=== PATIENT | male | born 1985 | race Hispanic/Latino ===

== ENCOUNTER 2018-07-19 23:33 | Emergency (ER) | payer BC ==
--- NOTE | 2018-07-19 23:41 | ED PDOC ---
Arrival/HPI - General Time Seen by Provider: 07/19/18 23:38 Historian: Patient, EMS - History of Present Illness Narrative History of Present Illness (Text): 07/19/18 23:41 Jake Alexander is a 32 year old male, whose past medical history includes bipolar disorder and substance abuse, presents to the ED brought in by EMS status post drug overdose. Patient snorted an unknown drug tonight prior to arrival, possible opiate. Patient admits to recreational drug use. EMS administered 2mg of Narcan en route to the hospital with positive response. On arrival patient is alert, oriented x3. Patient denies any other complaints currently, states he feels a little anxious. Time/Duration: Prior to Arrival Symptom Course: Improving Activities at Onset: Light Context: Home Past Medical History - Provider Review Nursing Documentation Reviewed: Yes - Cardiac Hx Pacemaker: No - Hematological/Oncological Hx Blood Transfusions: No Hx Blood Transfusion Reaction: No - Musculoskeletal/Rheumatological Hx Musculoskeletal Disorders: No - Psychiatric Hx Emotional Abuse: No Hx Physical Abuse: No Hx Substance Use: Yes (STOPPED ABOUT A MONTH AGO) - Anesthesia Hx Anesthesia Reactions: No Hx Malignant Hyperthermia: No - Suicidal Assessment Feels Threatened In Home Enviroment: No Family/Social History - Physician Review Nursing Documentation Reviewed: Yes Family/Social History: Unknown Family HX Hx Alcohol Use: Yes (OCCASIONAL BEER) Hx Substance Use: Yes (STOPPED ABOUT A MONTH AGO) Allergies/Home Meds Allergies/Adverse Reactions: Allergies No Known Allergies Allergy (Verified 10/27/16 09:34) Home Medications: Home Meds Medication Instructions Recorded Confirmed Citalopram Hydrobromide [Celexa] 40 mg PO DAILY 10/27/16 10/29/16 Lamotrigine [Lamictal] 200 mg PO DAILY 10/27/16 10/29/16 Ranitidine HCl [Zantac] 150 mg PO DAILY PRN 10/27/16 10/29/16 buPROPion [Bupropion HCl] 150 mg PO DAILY 10/27/16 10/29/16 Review of Systems - Physician Review All systems were reviewed & negative as marked: Yes - Review of Systems Constitutional: Normal. absent: Fevers Eyes: Normal ENT: Normal Respiratory: Normal. absent: SOB, Cough Cardiovascular: Normal. absent: Chest Pain Gastrointestinal: Normal. absent: Abdominal Pain, Diarrhea Genitourinary Male: Normal Musculoskeletal: Normal Skin: Normal Neurological: Normal. absent: Headache, Dizziness Endocrine: Normal Hemo/Lymphatic: Normal Psychiatric: Anxiety Physical Exam Vital Signs Reviewed: Yes Temperature: Afebrile Blood Pressure: Hypertensive Pulse: Regular Respiratory Rate: Normal Appearance: Positive for: Well-Appearing, Non-Toxic, Comfortable Pain Distress: None Mental Status: Positive for: Alert and Oriented X 3 - Systems Exam Head: Present: Atraumatic, Normocephalic Pupils: Present: PERRL Extroacular Muscles: Present: EOMI Conjunctiva: Present: Normal Mouth: Present: Moist Mucous Membranes Neck: Present: Normal Range of Motion Respiratory/Chest: Present: Clear to Auscultation, Good Air Exchange. No: Respiratory Distress, Accessory Muscle Use Cardiovascular: Present: Regular Rate and Rhythm, Normal S1, S2. No: Murmurs Abdomen: No: Tenderness, Distention, Peritoneal Signs Back: Present: Normal Inspection Upper Extremity: Present: Normal Inspection. No: Cyanosis, Edema Lower Extremity: Present: Normal Inspection. No: Edema Neurological: Present: GCS=15, CN II-XII Intact, Speech Normal Skin: Present: Warm, Dry, Normal Color. No: Rashes Psychiatric: Present: Alert, Oriented x 3, Normal Insight, Normal Concentration Medical Decision Making ED Course and Treatment: 07/19/18 23:41 Impression: 32 year old male who presents to the ED by EMS s/p overdose. Plan: -- EKG -- Labs -- Chest X-ray -- Urine drug screen -- Reassess and Disposition Progress Notes: Reviewed EKG, NSR at 96 bpm. Non-specific T wave changes. 07/20/18 00:55 Chest X-ray reviewed, shows no acute processes. 07/20/18 01:39 Pt's mother present at bedside. On re-evaluation, patient is awake, alert, and oriented x3. Ambulatory with steady gait, no signs of drug overdose. Pt to be discharged to custody of mother, f/u with outpt mental health. - Lab Interpretations I have reviewed the lab results: Yes - RAD Interpretation Dressage Instructor: ED Physician - EKG Interpretation Interpreted by ED Physician: Yes Type: 12 lead EKG - Scribe Statement The provider has reviewed the documentation as recorded by the Scribe Jaylin Tyler training with Ameena Bates All medical record entries made by the Scribe were at my direction and personally dictated by me. I have reviewed the chart and agree that the record accurately reflects my personal performance of the history, physical exam, medical decision making, and the department course for this patient. I have also personally directed, reviewed, and agree with the discharge instructions and disposition. Disposition/Present on Arrival - Present on Arrival Any Indicators Present on Arrival: No - Disposition Have Diagnosis and Disposition been Completed?: Yes Diagnosis: Drug abuse Disposition: HOME/ ROUTINE Disposition Time: 01:36 Patient Plan: Discharge Condition: STABLE Discharge Instructions (ExitCare): Drug Abuse and Drug Addiction (DC) Additional Instructions: Follow up out patient community mental health Referrals: Community Mental [facility] [Outside] - Follow up with primary
[2018-07-19 23:47] VITALS: BMI 24.4
[2018-07-19 23:51] VITALS: TEMP 97.6
[2018-07-20 00:01] LABS: HEMOGLOBIN 14.3 g/dL (14.0-18.0); MEAN CELL VOLUME 93.5 fl (80.0-105.0); MEAN CORPUSCULAR HEMOGLOBIN 31.2 pg (25.0-35.0); MEAN CORPUSCULAR HGB CONC 33.3 g/dl (31.0-37.0); MEAN PLATELET VOLUME 11.1 fl (7.0-11.0); RBC 4.59 10^6/uL (3.5-6.1); RED CELL DISTRIBUTION WIDTH 13.6 % (11.5-14.5); WHITE BLOOD COUNT 10.7 10^3/uL (4.5-11.0)
[2018-07-20 00:16] LABS: ALB/GLOB RATIO 1.5 (1.1-1.8); ALBUMIN 4.6 g/dL (3.0-4.8); ALT/SGPT 18 U/L (7-56); AST/SGOT 31 U/L (17-59); BLOOD UREA NITROGEN 9 mg/dL (7-21); CALCIUM 8.9 mg/dL (8.4-10.5); GFR NON-AFRICAN AMERICAN > 60
[2018-07-20 01:39] LABS: BARBITURATES, UR POSITIVE (NEGATIVE); BENZODIAZEPINES, UR POSITIVE (NEGATIVE); OPIATES, UR NEGATIVE (NEGATIVE); PHENCYCLIDINE, UR NEGATIVE (NEGATIVE)
[2018-07-20 02:39] VITALS: BP 156/85; PULSE 89; RESP 22; O2SAT 95
--- NOTE | 2018-07-20 07:21 | RAD ---
Date of service: 07/19/2018 HISTORY: od COMPARISON: No prior. FINDINGS: LUNGS: No active pulmonary disease. PLEURA: No significant pleural effusion identified, no pneumothorax apparent. CARDIOVASCULAR: No aortic atherosclerotic calcification present. Normal cardiac size. No pulmonary vascular congestion. OSSEOUS STRUCTURES: No significant abnormalities. VISUALIZED UPPER ABDOMEN: Normal. OTHER FINDINGS: None. IMPRESSION: No active disease.
--- NOTE | 2018-07-20 18:05 | CARD ---
APPROVED REPORT Date of service: 07/19/2018 EKG Measurement Heart [id number] ID [id number] <Conclusion> Normal sinus rhythm Voltage criteria for left ventricular hypertrophy Prolonged QT Abnormal ECG
== END 2018-07-20 01:38 | disposition home or self-care (01) ==
LOC: ED 23:33
DX: F19.10 Other psychoactive substance abuse, uncomplicated (principal); F31.9 Bipolar disorder, unspecified
CPT/HCPCS: 71045; 80053; 85027; 93005; 99284; G0480